=== PATIENT | female | born 1985 | race Caucasian/White ===

== ENCOUNTER → 2019-05-27 15:52 | Outpatient (CLI) | payer OTHER, SELFPAY ==
[2019-05-27 12:15] VITALS: BMI 28.6
[2019-05-27 17:30] LABS: Amphetamine Urine VISTA NEGATIVE (<1000 ng/mL); Barbiturate Urine VISTA NEGATIVE (< 200 ng/mL); Benzodiazepine Urine VISTA NEGATIVE (< 200 ng/mL); Cocaine Urine VISTA NEGATIVE (< 300 ng/mL); Ecstacy Urine VISTA NEGATIVE (< 500 ng/mL); Methadone Urine VISTA NEGATIVE (< 300 ng/mL); PCP Urine VISTA NEGATIVE (< 25 ng/mL); THC Urine VISTA NEGATIVE (< 50 ng/mL); Vista UDS pH Range 6
[2019-05-27 18:38] LABS: Chlamydia Trachomatis by PCR Negative (Negative); Neisserai gonorrhoeae by PCR Negative (Negative); Probe Check PASS; Sample Adequacy Control PASS; Specimen Processing Control PASS
[2019-06-02 12:43] LABS: HPV APTIMA, High Risk Negative (Negative)
== END ==
PROVIDERS: Family Provider Family Medicine; PCP Family Medicine; Referring Provider Obstetrics & Gynecology; Visit Provider Obstetrics & Gynecology
DX: Z34.80 Encounter for supervision of other normal pregnancy, unspecified trimester (principal)
CPT/HCPCS: 80307; 87086; 87088; 87491; 87591; 87624; 88175; G0145

== ENCOUNTER → 2019-06-07 09:52 | Outpatient (CLI) | payer OTHER, SELFPAY ==
[2019-06-07 07:59] VITALS: BMI 29.9
--- NOTE | 2019-06-07 09:53 | US_ITS ---
STUDY: FIRST TRIMESTER OBSTETRICAL ULTRASOUND REASON FOR EXAM: Female, 33 years old BLEEDING WITH CLOTS X 1DAY LMP: March 29, 2019. TECHNIQUE: Transvaginal TECHNICAL QUALITY: Adequate. PRIOR ULTRASOUND: None. FINDINGS: There is visualization of a single gestational sac in a normal intrauterine position. The mean sac diameter (MSD) measures 4.74 cm, indicating an estimated gestational age (EGA) of 10 weeks, 4 days. The gestational sac shape is within normal limits. There is a visualized yolk sac. The yolk sac measures 4.8 mm. The placenta is non-visualized. There is evidence of a 1.8 cm x 2.3 cm x 1 cm subchorionic hematoma. There is visualization of a live embryo. The crown-rump length (CRL) measures 3.99 cm, indicating an estimated gestational age (EGA) of 11 weeks, 0 days. There is demonstrated cardiac activity with a heart rate of 141 bpm. The estimated gestation age (EGA) by LMP is 10 weeks, 0 days. The estimated date of delivery (JONELLE) by LMP is January 03, 2020. The estimated gestation age (EGA) by US is 10 weeks, 6 days. The estimated date of delivery (JONELLE) by US is December 28, 2019. The uterus measures 12.5 cm x 8.7 cm x 6.9 cm. There is no demonstrated uterine fibroid. The cervix is closed. The right ovary was nonvisualized. The left ovary measures 3.8 cm x 3.2 cm x 2.3 cm. There is a 1.8 cm x 1.2 cm x 1 cm dominant follicle within the right ovary. There is no visualized left adnexal mass or complex lesion. There is no fluid in the cul de sac. US/Transvaginal w/Preg US IMPRESSION: Single live uterine gestation with mean gestational age of 10 weeks and 6 days. Findings in keeping with a 1.8 cm x 2.3 cm x 1 cm subchorionic hematoma. Dominant follicle in the left ovary measuring 1.8 cm x 1.2 cm x 1 cm. Electronically Signed: Neftali Sands, at 10:57 EST , Service support ,
== END ==
PROVIDERS: Referring Provider Nurse Practitioner Women's Health; Visit Provider Nurse Practitioner Women's Health
DX: Z34.80 Encounter for supervision of other normal pregnancy, unspecified trimester (principal)
CPT/HCPCS: 76817

== ENCOUNTER → 2019-06-21 | Outpatient (CLI) | payer OTHER, SELFPAY ==
[2019-06-07 07:59] VITALS: BMI 29.9
[2019-06-21 10:04] LABS: Absolute Lymphocyte Count 1.72 X10^3/uL (0.83-4.51); Absolute Neutrophil Count 3.4 X10^3/uL (2.0-7.7); Basophil# 0.02 X10^3/uL; Basophil% 0.3 % (0-1); Eosinophil# 0.25 X10^3/uL; Eosinophils% 4.2 % (0-5); Hematocrit 32.5 % (37-47); Lymphocyte # 1.72 X10^3/ul (4.0); Lymphocyte % 29.2 % (19-41); Mean Corp Hgb Conc 33.8 g/dL (32-36); Mean Corpuscular Hgb 30.4 pg (27.0-32.0); Mean Corpuscular Volume 89.8 fL (81-99); Mean Platelet Vol. 8.1 fl (6.2-12.0); Monocyte# 0.44 X10^3/uL; Monocyte% 7.5 % (0-10); NRBC Flagged by Analyzer 0 % (0-5); Neutrophil # 3.43 X10^3/uL (2.7-7.7); Neutrophil % 58.3 % (47-70); Platelet Count 227 K/mm3 (150-450); RBC Distribution Width CV 13.1 % (11.6-14.6); RBC Distribution Width SD 42.5 fl (35.1-43.9); Red Blood Count 3.62 M/mm3 (4.2-5.4); White Blood Count 5.9 K/mm3 (4.4-11.0)
[2019-06-21 11:49] LABS: HIV - WCH Non-Reactive (Nonreactive); Hepatitis B Surface Antigen Non-Reactive (Nonreactive); Hepatitis C Antibody Non-Reactive (Nonreactive); Rubella IgG 35.5 IU/mL
[2019-06-24 03:50] LABS: Rapid Plasmin Reagin (RPR) NONREACTIVE (NONREACTIVE)
== END | disposition home or self-care (01) ==
PROVIDERS: Referring Provider Obstetrics & Gynecology; Visit Provider Obstetrics & Gynecology
DX: Z34.80 Encounter for supervision of other normal pregnancy, unspecified trimester (principal)
CPT/HCPCS: 36415; 85025; 86592; 86703; 86762; 86803; 86850; 86900; 86901; 87340

== ENCOUNTER → 2019-09-16 | Outpatient (CLI) | payer OTHER, SELFPAY ==
[2019-09-15 11:26] VITALS: BMI 29.9
[2019-09-16 11:21] LABS: Absolute Lymphocyte Count 1.47 X10^3/uL (0.83-4.51); Absolute Neutrophil Count 6.5 X10^3/uL (2.0-7.7); Basophil# 0.02 X10^3/uL; Basophil% 0.2 % (0-1); Eosinophil# 0.22 X10^3/uL; Eosinophils% 2.5 % (0-5); Hematocrit 32.5 % (37-47); Hemoglobin 10.9 g/dL (12.0-15.0); Lymphocyte # 1.47 X10^3/ul (4.0); Lymphocyte % 16.6 % (19-41); Mean Corp Hgb Conc 33.5 g/dL (32-36); Mean Corpuscular Hgb 29.8 pg (27.0-32.0); Mean Corpuscular Volume 88.8 fL (81-99); Mean Platelet Vol. 8.4 fl (6.2-12.0); Monocyte# 0.59 X10^3/uL; Monocyte% 6.7 % (0-10); NRBC Flagged by Analyzer 0 % (0-5); Neutrophil # 6.51 X10^3/uL (2.7-7.7); Neutrophil % 73.7 % (47-70); Platelet Count 246 K/mm3 (150-450); RBC Distribution Width CV 13.1 % (11.6-14.6); RBC Distribution Width SD 42.5 fl (35.1-43.9); Red Blood Count 3.66 M/mm3 (4.2-5.4); White Blood Count 8.8 K/mm3 (4.4-11.0)
[2019-09-16 11:52] LABS: Glucose Challenge Gest 1H 50g 113 mg/dL (70-140)
== END | disposition home or self-care (01) ==
PROVIDERS: Referring Provider Obstetrics & Gynecology; Visit Provider Obstetrics & Gynecology
DX: Z34.80 Encounter for supervision of other normal pregnancy, unspecified trimester (principal)
CPT/HCPCS: 36415; 82950; 85025

== ENCOUNTER → 2019-12-01 | Outpatient (CLI) | payer OTHER, SELFPAY ==
[2019-12-01 11:52] VITALS: BMI 29.9
== END | disposition home or self-care (01) ==
PROVIDERS: Referring Provider Obstetrics & Gynecology; Visit Provider Obstetrics & Gynecology
DX: Z34.80 Encounter for supervision of other normal pregnancy, unspecified trimester (principal); Z3A.36 36 weeks gestation of pregnancy; Z34.90 Encounter for supervision of normal pregnancy, unspecified, unspecified trimester
CPT/HCPCS: 87081

== ENCOUNTER 2019-12-02 12:15 | Inpatient (IN) | payer OTHER, SELFPAY ==
[2019-12-01 11:52] VITALS: BMI 29.9
[2019-12-02] VITALS (38 sets, daily range): BP systolic 119–151; BP diastolic 55–80; PULSE 82–116; TEMP 35.7–37.1; O2SAT 95–100; BMI 39.7
[2019-12-02 12:16] LABS: ROM Internal Control Test YES-OK TO RESULT pt. (Internal QC)
[2019-12-02 12:17] LABS: ROM Patient Test POSITIVE (Negative)
[2019-12-02] MEDS: Lactated Ringers 1,000 ML 50 ML IV (12:45)
[2019-12-02 13:20] LABS: Absolute Lymphocyte Count 1.56 X10^3/uL (0.83-4.51); Absolute Neutrophil Count 5.5 X10^3/uL (2.0-7.7); Basophil# 0.01 X10^3/uL; Basophil% 0.1 % (0-1); Eosinophils% 1.2 % (0-5); Hematocrit 33.3 % (37-47); Lymphocyte # 1.56 X10^3/ul (4.0); Lymphocyte % 19.5 % (19-41); Mean Corpuscular Hgb 29.6 pg (27.0-32.0); Mean Corpuscular Volume 89.8 fL (81-99); Mean Platelet Vol. 8.3 fl (6.2-12.0); Monocyte# 0.84 X10^3/uL; Monocyte% 10.5 % (0-10); NRBC Flagged by Analyzer 0 % (0-5); Neutrophil # 5.48 X10^3/uL (2.7-7.7); Neutrophil % 68.3 % (47-70); Platelet Count 233 K/mm3 (150-450); RBC Distribution Width CV 13.3 % (11.6-14.6); RBC Distribution Width SD 43.8 fl (35.1-43.9); Red Blood Count 3.71 M/mm3 (4.2-5.4)
[2019-12-02] MEDS: Betamethasone/Betamethasone 30 MG/5 ML Vial 12 MG IM (15:47)
[2019-12-02] MEDS: Oxytocin 30 units/NS 500 ml 30 UNITS/500 ML IV.SOLN IV (19:00)
[2019-12-02] MEDS: Lactated Ringers 500 ML 999 ML IV (21:08)
[2019-12-02] MEDS: fentaNYL-bupivacaine (epidural) 100 ML BAG EPIDURAL (21:55)
--- NOTE | 2019-12-02 23:55 | PLAC_PTH ---
PATIENT: DEMETRIO INIGUEZ LOC: [facility] U#:[id number] AGE/SX: 34/F ROOM: WP015 RE12/02/[address]: Dr. Lou Guerrero MD : 1985 BED: 1 DIS: 12/04/2019 SPEC #: [id number] RECD: 12/03/19 06:27 STATUS: YULISSA RESusannah #: [id number] VANDANA: 12/02/19 23:[address]: Lou Guerrero DEPT: SURGICAL PATHOLOGY RECD BY: Cooper Hoyos ENTERED: 12/03/19 09:11 SP TYPE: PLACENTA OTHR DR: No Primary Care Phys Tissues: Placenta, NOS Procedures: Surgery Specimen Level V HEADER OPERATION: Vaginal delivery PRE-OP DIAGNOSIS: Labor TISSUE SUBMITTED: Placenta MICROSCOPIC DIAGNOSIS Gary placenta (417 gm): Umbilical cord - trivascular with true knot. Placental membranes - no pathologic change. Placental disc - organizing intraparenchymal hemorrhage, mild John-Marco change, increased intravillous congestion and increased microcalcifications. AM:kentrell 12/07/19 MICROSCOPIC DESCRIPTION Slides are reviewed. GROSS DESCRIPTION SPECIMEN: PLACENTA / CLINICAL INFORMATION: A. Weight: 2.78 kg B. Gestational Age: 36 weeks C. Sex: Female PLACENTAL WEIGHT (POST FIXATION): 417 gm PLACENTAL DIMENSIONS: 17 x 16 x 3 cm. PLACENTAL SHAPE: Usual ovoid PLACENTAL WEIGHT FOR GESTATIONAL AGE: Within 10-99th percentile The maternal surface is fragmented and a small detached piece of placenta is also noted. Completeness of the placenta cannot be assessed due to fragmented nature of the placental disc. The maternal surface also shows speckled calcification. MEMBRANES - Present A. Insertion: Marginal B. Site of rupture from edge: 5 cm from edge of placental disc C. Color of membrane: May-hernández D. Abnormalities: Focal hemorrhage is noted in the membranes. UMBILICAL CORD - Present A. Color: May-hernández B. Insertion: Central C. Length: 36 cm D. Diameter: 1.1 cm E. Number of vessels: Three F. Abnormalities: A loose true knot is noted close to the end of the umbilical cord. PLACENTAL DISC - Present A. Color of surface: May-hernández B. surface abnormalities: None C. Maternal cotyledons: Intact with minimal tears D. Attached retro placental clot: No clot E. Cut surface: Dark red and spongy F. Lesions: Sections reveal two mya, indurated lesions measuring 0.5 and 1 cm in greatest dimension. G. Separate clot: Absent SECTIONS SUBMITTED: 1. Membrane roll 2. Cord, maternal end 3. Cord, end 4. Placental disc, and maternal surfaces, larger lesion 5. Placental disc, and maternal surfaces 6. Placental disc, and maternal surfaces, smaller lesion NICKIE:kentrell 12/06/19 TC:5 CPT: 57653
[2019-12-02] MEDS: Oxytocin 30 units/NS 500 ml 30 UNITS/500 ML IV.SOLN 334 UNITS IV (23:58)
[2019-12-03] VITALS (20 sets, daily range): BP systolic 115–133; BP diastolic 56–78; PULSE 69–88; RESP 16; TEMP 36.2–37.1; O2SAT 96–99
--- NOTE | 2019-12-03 00:38 | PCM.HPOB.BLA ---
- Problem List (1) premature rupture of membranes (PPROM) with onset of labor after 24 hours of rupture in first trimester, antepartum Status: Acute (2) Anemia affecting Status: Acute Comment: iron. repeat CBC next visit (3) Status: Acute Qualifiers: Comment: declines genetic, ntd, and carrier testing. normal anatomy (4) Supervision of other normal Status: Acute Comment: PRR JONELLE 01/03/2020 PC: Nilam Koehler Kenna Spouse: Jose History and Physical Date of Admission: 12/03/19 Intake Vital Signs 12/01/19 Height 5 ft 12/01/19 Weight: 234 lb 6 oz 12/01/19 BMI 45.8 12/01/19 BP 136/72 H Intake Visit Reasons: 36WK OB Palliative Senior Np Required: No Accompanied by: self Allergies No Known Allergies Allergy (Verified 12/01/19 11:39) Medications promethazine 12.5 mg tablet 12.5 mg PO Q6H PRN #60 tab 05/24/19 [Rx Confirmed 12/01/19] docosahexaenoic acid 200 mg capsule mg PO 10/13/19 [History Confirmed 12/01/19] ferrous sulfate 325 mg (65 mg iron) tablet,delayed release 325 mg PO DAILY 10/13/19 [History Confirmed 12/01/19] Last Menstral Period: 03/29/19 Zika: Zika virus screening: Negative : No PFSH PFSH Surgical History History of wisdom tooth extraction, class IV edentulism (Acute) Family History Grandmother Breast cancer Grandfather Colon cancer Social History (Updated 12/01/19 @ 11:[address] Lou Guerrero MD) adopted: No household members: family number of children: 3 current occupational status: employed pets and animals: Yes history of recent travel: No sexually active: Yes Smoking Status: Never smoker alcohol intake: never caffeine: Yes what type of physical activity do you participate in: none seatbelt use: always do you feel safe at home: Yes additional social history: Jose- Insurance Patient is a PA at [employer] Pregancy History 4 Elective abortions Hx Para 3 Spontaneous abortions Hx # Term Pregnancies Ectopic pregnancies Hx # Pregnancies Multiple births # of living children Past Pregnancies Del. Date Name GA/Weeks Outcome Route Bth Weight Infant Gen Labor Lgth Anesthesia Del Locatn Provider FOB Unknown 2010 Salasn 40 live - full term 8lbs 4oz Female 12 hours epidural Saima Guillaume Unknown 2012 Nilam 40 live - full term 8lbs 13oz Female 3hours epidural [facility] Ayden Unknown 2014 Chantale 39 live - full term 7lbs 15oz Female 5 hours epidural [facility] Ayden Delivery Date: On 05/27/19 @ 11:47 Bev Baires IoL- term ; Delivery Date: On 05/27/19 @ 11:48 Bev Baires IoL Delivery Date: On 05/27/19 @ 11:48 Bev Baires IoL HPI 36WK OB : Details: DEMETRIO INIGUEZ is a 34 year old G4, P3 at 36 weeks presents with PPROM. She has irregular contractions and is 3 cm dilated. She had spontaneous loss of clear fluid at 11:00 today and persistent leaking and a positive ROM plus. OB Visit JONELLE Calculator Estimated Delivery Date Method Current WG Current Estimate 12/27/19 Ultrasound #1 36w 2d Other Estimates 01/03/20 LMP (Certain) 35w 2d 12/27/19 Manual 36w 2d CRL 23 mm FHT 165 not consistent with LMP Expected Delivery Route/Plan Labor Preferences- labor support person: Jose pain management options preferred: epidural cut cord/dad catch: yes : yes PP control planned: discussed possible routes of delivery and associated risks: [] special requests: [] Specific Issue/Plans flu vaccine: given tdap vaccine: given rhogam: na LARC form signed: declined movement and labor precautions reviewed. Problem list reviewed and updated with the most current plan of care details and appropriate orders placed. Relevant counseling for the gestational age provided. Continue routine care and follow up unless otherwise noted in visit notes/problem list details Initial Weight: 176 lb Date EGA Weight BP Urine Prot Glucose FHR FuHt Pres Dilation Effaced St Visit Note 06/07/19 11w 0d 180 lb 2 oz (+4 lb 2 oz) Work in for vag bleeding with small clot this am. None since. Cevix closed, small amount brown discharge. Active IUP w FHT noted 06/25/19 13w 4d 184 lb (+8 lb) 116/68 SM- some brown discharge no LOF, resolving subchorionic hematoma 07/19/19 17w 0d 189 lb (+13 lb) 135/79 Negative Negative 145 SM- no vb lof good fm no regular ctx 08/18/19 21w 2d 207 lb (+31 lb) 126/70 Negative Negative 140 22 SM- no vb lof good fm no regular ctx 09/15/19 25w 2d 216 lb 8 oz (+40 lb 8 oz) 108/66 Negative Negative 140 25 SM- no vb lof good fm no regular ctx cbc gct ordered 10/13/19 29w 2d 227 lb (+51 lb) 116/68 Negative Negative 140 29 SM- no vb lof good fm no regular ctx 10/27/19 31w 2d 225 lb (+49 lb) 130/82 Negative Negative 140 SM- no vb lof good fm no regular ctx 11/10/19 33w 2d 232 lb (+56 lb) 124/78 130 33 SM- no vb lof good fm no regular ctx 11/24/19 35w 2d 236 lb 6 oz (+60 lb 6 oz) 130/80 Negative Negative 130 35 SM- no vb lof good fm no regular ctx 12/01/19 36w 2d 234 lb 6 oz (+58 lb 6 oz) 136/72 130 37 Cephalic 1.5 40 -3 SM- no vb lof good fm no regular ctx gbs today ACOG First Trimester First Trimester: Discussed Diagnostics Diagnostics Diagnostics Blood Type B POSITIVE 06/21/19 Antibody Screen NEGATIVE 06/21/19 Glucose 1 Hr 50 gm 113 mg/dL (70-140) 09/16/19 HIV 1&2 Antibody Non-Reactive (Nonreactive) 06/21/19 Rubella IgG Antibody 35.5 IU/mL 06/21/19 Hgb 10.9 g/dL (12.0-15.0) L 09/16/19 Hct 32.5 % (37-47) L 09/16/19 RPR NONREACTIVE (NONREACTIVE) 06/21/19 Details: HIV: Urine Culture: Sequential Screen: NIPT Screen: Assessment & Plan Problems 1. Supervision of other normal Z34.80 2. Anemia affecting O99.019 3. 36 weeks gestation of Z3A.36 Patient presents IAL, plan expectant management for , Pitocin if needed. Pain management: [plans epidural]. GBS unknown. Plan ampicillin prophylaxis to prematurity. Management of any complications: PPROM dose of Celestone given I have reviewed the [facility] and made any clinically relevant updates. Orders Orders: POC Urinalysis 2 Dip (Clinic) Today Culture, Group B Streptococcus Today Z34.80, Z3A.36 Coding Level of Care Code OB Routine Diagnoses Supervision of other normal Z34.80 Anemia affecting O99.019 36 weeks gestation of Z3A.36 ??Weeks of gestation: 36 weeks
--- NOTE | 2019-12-03 00:55 | OP.PCM_ITS ---
Problem List (1) premature rupture of membranes (PPROM) with onset of labor after 24 hours of rupture in first trimester, antepartum Status: Acute (2) Anemia affecting Status: Acute Comment: iron. repeat CBC next visit (3) Status: Acute Qualifiers: Comment: declines genetic, ntd, and carrier testing. normal anatomy (4) Supervision of other normal Status: Acute Comment: PRR JONELLE 01/03/2020 PC: Nilam Koehler Kenna Spouse: Jose Vaginal Delivery Maternal Presentation: Spontaneous Rupture of Membranes - pprom 34-year-old G4, P3 at 36 weeks presents with spontaneous rupture membranes clear fluid. She was having irregular contractions and was given Pitocin for augmentation. Method of Induction: Pitocin Amniotic Membrane Rupture Type: Spontaneous at home Amniotic Fluid Description: Clear Final JONELLE: 01/03/20 Gestational age: 35 Weeks and 4 Days Date of Procedure: 12/03/19 Pre-Operative Diagnosis: pprom Post-Operative Diagnosis: same Surgery/ Procedure Performed: Spontaneous Vaginal Delivery Type of Anesthesia: Epidural Description of Procedure: Patient began pushing and delivered the head in the [JOCELYNN] presentation. The head was delivered atraumatically. The anterior and posterior shoulders delivered without complication followed by the rest of the infant and the infant was placed on the maternal abdomen. Delayed cord clamping was employed for approximately 60 seconds. A large true knot was noted in the cord. Cord was clamped and cut and gentle traction was applied to the cord and the placenta delivered with traction and some manipulation. The placenta was noted to be intact with three-vessel cord but to be highly calcified and nodular. Banjo curette was used to ensure that all pieces of the placenta was removed which was confirmed both with curettage and on ultrasound. The perineum and vagina were inspected and [noted to have no laceration]. EBL was 300 cc. Patient and tolerated delivery well. Presentation: JOCELYNN Placental Delivery Description: Spontaneous Cord Vessel Description: 3 Vessels Cord Entanglement: True Knot(s) Estimated Blood Loss: 300 A gender: Female Episiotomy Description: None Laceration: None Medications given after delivery: IV Pitocin Complications: None Multi Select Codes - Urinary/Genital Urinary/Genital CPT Codes: 04500 Vaginal Delivery [facility]
--- NOTE | 2019-12-03 09:38 | DCINST_ITS ---
Discharge Diet: No Restrictions Discharge Activity: Return to Normal Activity, May not drive while taking narcotic pain medications., May Shower May resume sexual activity in: 4-6 weeks Call your doctor if your incision/area has: Continuous Slow Oozing, Sudden Increased Bleeding, Increased Pain/ Swelling, Increased Redness, Foul Smelling Discharge Additional Instructions: If you experience any of the following, contact your healthcare provider. * Bleeding that soaks a pad every hour for 2 hours * Fever 100.4 or higher * Unrelieved incision or abdominal pain * Swelling, redness, discharge or bleeding from your incision or episiotomy site * Your incision begins to separate * Problems urinating (including inability to urinate or burning while urinating). * Visual changes * Severe headache * Flu-like symptoms * Pain or redness in one of both of your breasts * Pain, warmth, tenderness or swelling in your legs, especially the calf area * Frequent nausea and vomiting * Symptoms of depression or anxiety If you experience any of the following, call 911 or go to the nearest Emergency Room. * Chest pain * Problems breathing * Seizure activity * Partial or complete paralysis of a body part, slurred speech, weakness or drooping of the face, or a sudden inability to walk or hold your balance Allergies/Adverse Reactions: Allergies No Known Allergies Allergy (Verified 12/02/19 11:55) Medications to take at Discharge Vits [Prenatabs FA ] 1 tab PO DAILY 12/02/19 Please Follow Up With: Lou Guerrero MD - [phone] When: Call to make an appointment with your doctor in 6 weeks. If you had elevated Blood pressure or 4th degree laceration you will need to be seen in 2 weeks. Primary Care Physician: Care Physician,No Primary [Primary Care Provider] - Test Results: Test results from this visit will be discussed in further detail at your follow- up appointment, if applicable.
--- NOTE | 2019-12-03 09:38 | PN.OBGYN_ITS ---
Patient Problems: Active and Suspected Problems (Last Reviewed 12/01/19 @ 11:40 by Betty Gorman) premature rupture of membranes (PPROM) with onset of labor after 24 hours of rupture in first trimester, antepartum (Acute) Subjective: doing well no complaints pain controlled no CP SOB N V ambulating well tolerating po lochia moderate, going well - Physical Exam Vitals/I&O's: Vital Signs Temp Pulse BP Pulse Ox 97.2 F L 79 119/56 L 98 12/03/19 00:39 12/03/19 02:21 12/03/19 02:21 12/03/19 00:31 Weight: 238 lb 15.697 oz Body Mass Index (BMI) 39.7 Intake and Output for Last 24 Hours 12/01/19 12/02/19 12/03/19 23:59 23:59 23:59 Intake Total 1182.87 / 1182.87 920.00 / 920.00 Output Total 300 / 300 Balance 1182.87 / 1182.87 620.00 / 620.00 Laboratory Results 12/02/19 12:00: Vag Amniotic Fld Detect POSITIVE H 12/02/19 12:36: COVID-19 ([facility]) Not Detected 12/02/19 12:45: WBC 8.0, RBC 3.71 L, Hgb 11.0 L, Hct 33.3 L, MCV 89.8, MCH 29.6, MCHC 33.0, RDW Std Deviation 43.8, RDW Coeff of Ac 13.3, Plt Count 233, MPV 8.3, Immature Gran % (Auto) 0.400, Neut % (Auto) 68.3, Lymph % (Auto) 19.5, Atlantic % (Auto) 10.5 H, Eos % (Auto) 1.2, Baso % (Auto) 0.1, Absolute Neuts (auto) 5.5, Absolute Lymphs (auto) 1.56, Nucleated RBC % 0 12/02/19 12:45: Blood Type B POSITIVE, Antibody Screen NEGATIVE Current Medications Acetaminophen (Tylenol) 1,000 mg PO Q8H PRN PRN PRN Reason: Pain Score 1-3/10 Bisacodyl (Dulcolax) 10 mg RECTAL UD PRN PRN Reason: If no BM Dibucaine (Dibucaine) 1 applic TOPICAL TID PRN PRN; Protocol PRN Reason: Discomfort Hydrocortisone (Hytone) 1 applic TOPICAL TID PRN PRN; Protocol PRN Reason: Discomfort Methylergonovine Maleate (Methergine) 0.2 mg IM X1 PRN PRN Reason: Excess bleeding/uterine atony Naproxen (Naprosyn) 500 mg PO Q8H PRN PRN PRN Reason: Pain Score 1-3/10 Ondansetron HCl (Zofran) 4 mg IV Q4H PRN PRN PRN Reason: Nausea Oxycodone HCl (Oxyir) 5 - 10 mg PO Q4H PRN PRN PRN Reason: Pain Score 4-10/10 Senna/Docusate Sodium (Senokot-S, Pina-Colace) 1 - 2 tablet PO DAILY PRN PRN PRN Reason: Constipation Simethicone (Mylicon) 80 mg PO PCHS PRN PRN Reason: Indigestion/Stomach pain Sodium Chloride () 5 - 15 ml IV UD PRN PRN Reason: SALINE FLUSH Medical Necessity - Tobacco Use Smoking Status: Never smoker Assessment/Plan All Active Problems (Last Reviewed 12/01/19 @ 11:40 by Betty Gorman) premature rupture of membranes (PPROM) with onset of labor after 24 hours of rupture in first trimester, antepartum (Acute) Anemia affecting (Acute) Supervision of other normal (Acute) (Acute) Bleeding in early (Resolved) Subchorionic hematoma in first trimester (Resolved) s/p PPD # 1 1. routine post delivery care 2. breast feeding- support given 3. rh positive 4. rubella immune
--- NOTE | 2019-12-03 09:38 | PCM.DCVAG ---
Discharge Diet: No Restrictions Discharge Activity: Return to Normal Activity, May not drive while taking narcotic pain medications., May Shower May resume sexual activity in: 4-6 weeks Call your doctor if your incision/area has: Continuous Slow Oozing, Sudden Increased Bleeding, Increased Pain/ Swelling, Increased Redness, Foul Smelling Discharge Additional Instructions: If you experience any of the following, contact your healthcare provider. Bleeding that soaks a pad every hour for 2 hours Fever 100.4 or higher Unrelieved incision or abdominal pain Swelling, redness, discharge or bleeding from your incision or episiotomy site Your incision begins to separate Problems urinating (including inability to urinate or burning while urinating). Visual changes Severe headache Flu-like symptoms Pain or redness in one of both of your breasts Pain, warmth, tenderness or swelling in your legs, especially the calf area Frequent nausea and vomiting Symptoms of depression or anxiety If you experience any of the following, call 911 or go to the nearest Emergency Room. Chest pain Problems breathing Seizure activity Partial or complete paralysis of a body part, slurred speech, weakness or drooping of the face, or a sudden inability to walk or hold your balance Allergies/Adverse Reactions: Allergies No Known Allergies Allergy (Verified 12/02/19 11:55) Medications to take at Discharge Vits [Prenatabs FA ] 1 tab PO DAILY 12/02/19 Please Follow Up With: Lou Guerrero MD - [phone] When: Call to make an appointment with your doctor in 6 weeks. If you had elevated Blood pressure or 4th degree laceration you will need to be seen in 2 weeks. Primary Care Physician: Care Physician,No Primary [Primary Care Provider] - Test Results: Test results from this visit will be discussed in further detail at your follow-up appointment, if applicable.
[2019-12-03] MEDS: Naproxen 250 MG Tablet 500 MG PO (13:08)
[2019-12-04] VITALS (7 sets, daily range): BP systolic 122–133; BP diastolic 58–75; PULSE 74–90; RESP 15–16; TEMP 36.2–36.8
--- NOTE | 2019-12-04 12:30 | PCM.PN.OB ---
Patient Problems: Active and Suspected Problems (Last Reviewed 12/01/19 @ 11:40 by Betty Gorman) premature rupture of membranes (PPROM) with onset of labor after 24 hours of rupture in first trimester, antepartum (Acute) Subjective: doing well no complaints pain controlled no CP SOB N V ambulating well tolerating po lochia moderate, going well - Physical Exam Vitals/I&O's: Vital Signs Temp Pulse Resp BP Pulse Ox 97.2 F L 90 15 122/65 H 96 12/04/19 08:00 12/04/19 08:07 12/04/19 08:00 12/04/19 08:07 12/03/19 20:13 Oxygen Delivery Method Room Air Weight: 238 lb 15.697 oz Body Mass Index (BMI) 39.7 Intake and Output for Last 24 Hours 12/02/19 12/03/19 12/04/19 23:59 23:59 23:59 Intake Total 1182.87 / 1182.87 920.00 / 920.00 Output Total 1100 / 1100 Balance 1182.87 / 1182.87 -180.00 / -180.00 General: Alert, Oriented x3 Current Medications Acetaminophen (Tylenol) 1,000 mg PO Q8H PRN PRN PRN Reason: Pain Score 1-3/10 Bisacodyl (Dulcolax) 10 mg RECTAL UD PRN PRN Reason: If no BM Dibucaine (Dibucaine) 1 applic TOPICAL TID PRN PRN; Protocol PRN Reason: Discomfort Hydrocortisone (Hytone) 1 applic TOPICAL TID PRN PRN; Protocol PRN Reason: Discomfort Methylergonovine Maleate (Methergine) 0.2 mg IM X1 PRN PRN Reason: Excess bleeding/uterine atony Naproxen (Naprosyn) 500 mg PO Q8H PRN PRN PRN Reason: Pain Score 1-3/10 Last Admin: 12/03/19 13:08 Dose: 500 mg Documented by: Ondansetron HCl (Zofran) 4 mg IV Q4H PRN PRN PRN Reason: Nausea Oxycodone HCl (Oxyir) 5 - 10 mg PO Q4H PRN PRN PRN Reason: Pain Score 4-10/10 Senna/Docusate Sodium (Senokot-S, Pina-Colace) 1 - 2 tablet PO DAILY PRN PRN PRN Reason: Constipation Simethicone (Mylicon) 80 mg PO PCHS PRN PRN Reason: Indigestion/Stomach pain Sodium Chloride () 5 - 15 ml IV UD PRN PRN Reason: SALINE FLUSH Medical Necessity - Tobacco Use Smoking Status: Never smoker Assessment/Plan All Active Problems (Last Reviewed 12/01/19 @ 11:40 by Betty Gorman) premature rupture of membranes (PPROM) with onset of labor after 24 hours of rupture in first trimester, antepartum (Acute) Anemia affecting (Acute) Supervision of other normal (Acute) (Acute) Bleeding in early (Resolved) Subchorionic hematoma in first trimester (Resolved) s/p PPD # 2 1. routine post delivery care 2. breast feeding- support given 3. rh positive 4. rubella immune
--- NOTE | 2019-12-04 14:46 | NURSING ---
1430 dc to home; placed in car seat per parents;
[2019-12-07 12:37] LABS: Pathology Specimen OB SEE PATHOLOGY REPORT
== END 2019-12-04 14:30 | disposition home or self-care (01) | DRG 807 ==
LOC: WPOUT 12:18 → WP 12:18
PROVIDERS: Nurse Practitioner Women's Health; Admitting Provider Obstetrics & Gynecology; Referring Provider Obstetrics & Gynecology; Visit Provider Obstetrics & Gynecology
DX: O42.013 Preterm premature rupture of membranes, onset of labor within 24 hours of rupture, third trimester (principal); Z37.0 Single live birth; O99.214 Obesity complicating childbirth; E66.01 Morbid (severe) obesity due to excess calories; O99.02 Anemia complicating childbirth; D64.9 Anemia, unspecified; O69.2XX0 Labor and delivery complicated by other cord entanglement, with compression, not applicable or unspecified; Z3A.36 36 weeks gestation of pregnancy
CPT/HCPCS: 59025; 59050; 76815; 84112; 85025; 86850; 86900; 86901; 87635; 88307; 99218; G2023; J7120; G0378; J0290; J0702; U0003

== ENCOUNTER → 2020-06-20 10:55 | Outpatient (CLI) | payer OTHER, SELFPAY ==
[2020-06-20 10:34] VITALS: BMI 33.7
[2020-06-20 11:24] LABS: Absolute Lymphocyte Count 1.68 X10^3/uL (0.83-4.51); Absolute Neutrophil Count 2.8 X10^3/uL (2.0-7.7); Basophil# 0.03 X10^3/uL; Basophil% 0.6 % (0-1); Eosinophil# 0.28 X10^3/uL; Eosinophils% 5.5 % (0-5); Hematocrit 38.5 % (37-47); Lymphocyte # 1.68 X10^3/ul (4.0); Lymphocyte % 33.1 % (19-41); Mean Corp Hgb Conc 33.8 g/dL (32-36); Mean Corpuscular Hgb 29.8 pg (27.0-32.0); Mean Corpuscular Volume 88.3 fL (81-99); Mean Platelet Vol. 8.5 fl (6.2-12.0); Monocyte# 0.33 X10^3/uL; Monocyte% 6.5 % (0-10); NRBC Flagged by Analyzer 0 % (0-5); Neutrophil # 2.75 X10^3/uL (2.7-7.7); Neutrophil % 54.1 % (47-70); Platelet Count 298 K/mm3 (150-450); RBC Distribution Width CV 12.3 % (11.6-14.6); Red Blood Count 4.36 M/mm3 (4.2-5.4); White Blood Count 5.1 K/mm3 (4.4-11.0)
[2020-06-20 12:23] LABS: AST(SGOT) 18 U/L (15-37); Alanine Aminotransfer ALT/SGPT 35 U/L (13-56); Albumin, Serum 3.9 g/dL (3.2-5.0); Alkaline Phosphatase 76 U/L (45-117); Anion Gap 6 (5-15); BUN 14 mg/dL (7-18); Calcium,Total 9.1 mg/dL (8.5-10.1); Chloride 107 mmol/L (98-107); Cholesterol 131 mg/dL (200); Creatinine, Serum 0.74 mg/dL (0.55-1.02); EST Glomerular Filtration Rate 96 mL/min (>60); Est Glom Filt Rate - Afr Amer 116 mL/min (>60); Globulin 4.1 g/dL (2.2-4.2); Glucose 81 mg/dL (74-106); High Density Lipoprotein 53 mg/dL; Potassium 4.3 mmol/L (3.5-5.1); Sodium Level 139 mmol/L (136-145); Triglycerides 36 mg/dL; Very Low Density Lipoprotein 7 mg/dL (5-40)
== END ==
PROVIDERS: PCP Internal Medicine; Referring Provider Internal Medicine; Visit Provider Internal Medicine
DX: Z00.00 Encounter for general adult medical examination without abnormal findings (principal)
CPT/HCPCS: 36415; 80053; 80061; 85025

== ENCOUNTER → 2024-09-14 | Outpatient (CLI) | payer OTHER, SELFPAY ==
[2024-09-17 11:08] LABS: HPV APTIMA, High Risk Negative (Negative)
== END | disposition home or self-care (01) ==
LOC: LABSPEC 16:15
PROVIDERS: PCP Internal Medicine; Referring Provider Nurse Practitioner Family; Visit Provider Nurse Practitioner Family
DX: Z12.4 Encounter for screening for malignant neoplasm of cervix (principal)
CPT/HCPCS: 87624; 88175; G0145

== ENCOUNTER → 2024-12-01 | Outpatient (CLI) | payer OTHER, SELFPAY ==
[2024-12-01 07:56] LABS: Hematocrit 39.7 % (37-47); Hemoglobin 14.0 g/dL (12.0-15.0); Immature Granulocytes Count 0.010 X10^3/uL (0.0-0.0); Mean Corp Hgb Conc 35.3 g/dL (32-36); Mean Corpuscular Volume 89.4 fL (81-99); Mean Platelet Vol. 9.0 fl (6.2-12.0); NRBC Flagged by Analyzer 0 % (0-5); Platelet Count 272 K/mm3 (150-450); RBC Distribution Width CV 11.9 % (11.6-14.6); RBC Distribution Width SD 39.2 fl (35.1-43.9); Red Blood Count 4.44 M/mm3 (4.2-5.4); White Blood Count 5.8 K/mm3 (4.4-11.0)
[2024-12-01 08:45] LABS: AST(SGOT) 15 U/L (<=31); Alanine Aminotransfer ALT/SGPT 16 U/L (<=34); Albumin, Serum 4.7 g/dL (3.5-5.0); Alkaline Phosphatase 56 U/L (35-104); Anion Gap 12 (5-15); BUN 20 mg/dL (4-19); BUN/Creat Ratio 26.7 RATIO (10-20); Calcium,Total 9.9 mg/dL (7.6-11.0); Carbon Dioxide 22.5 mmol/L (21.0-32.0); Chloride 104 mmol/L (98-108); Cholesterol 163 mg/dL (<=200); Globulin 3.1 g/dL (2.2-4.2); Glucose 90 mg/dL (70-99); Low Density Lipoprotein Calc. 99 mg/dL; Potassium 4.3 mmol/L (3.3-5.1); Triglycerides 60 mg/dL; Very Low Density Lipoprotein 12 mg/dL (5-40); cholesterol:hdl ratio screen 3.15
== END | disposition home or self-care (01) ==
PROVIDERS: PCP Internal Medicine; Referring Provider Internal Medicine; Visit Provider Internal Medicine
DX: Z00.00 Encounter for general adult medical examination without abnormal findings (principal); Z13.6 Encounter for screening for cardiovascular disorders; E04.9 Nontoxic goiter, unspecified
CPT/HCPCS: 36415; 80053; 80061; 84443; 85025

== ENCOUNTER → 2024-12-13 | Outpatient (CLI) | payer OTHER, SELFPAY ==
--- NOTE | 2024-12-13 11:47 | US_ITS ---
PROCEDURE: THYROID, 12/13/2024 REASON FOR EXAM: ENLARGED THYROID TECHNIQUE: Grayscale and color Doppler imaging of the thyroid was performed. COMPARISON: None FINDINGS: Right lobe measures 5.4 x 1.3 x 1.8cm. Essentially homogeneous background echotexture. No abnormal vascularity. No solid or mostly solid nodules are identified. Left lobe measures 5.1 x 1.8 x 1.6 cm. Essentially homogeneous background echotexture. No abnormal vascularity. Nodules as below: *6 x 5 x 3 mm, solid, partially mildly hypoechoic, technically TI-RADS 4. Isthmus measures 3 mm in thickness. US/Thyroid IMPRESSION: 1. Assessment is TI-RADS 4. No nodules currently meet criteria for FNA or follo w-up. 2. Otherwise homogeneous gland of high normal-size. Management recommendations for TI-RADS 4 findings: FNA if = 1.5 cm; Follow if = 1 cm at 1, 2, 3, and 5 years. Recommendations per ACR Thyroid Imaging, Reporting and Data System (TI-RADS): Brandee brandt Paper of the ACR TI-RADS Committee, 2017 (https://linkinghub.[employer].com/retrieve/pii/[email or web address]) Reading Location: [id number]
== END | disposition home or self-care (01) ==
LOC: US 11:46
PROVIDERS: PCP Internal Medicine; Referring Provider Internal Medicine; Visit Provider Internal Medicine
DX: E04.9 Nontoxic goiter, unspecified (principal)
CPT/HCPCS: 76536